=== PATIENT | female | born 1975 ===

== ENCOUNTER → 2017-01-14 | Day surgery (SDC) | payer OTHER ==
[~2017-01-14] VITALS: Ht 156.2 cm; Wt 89.9 kg
[2017-01-14 09:24] LABS: HCT 36.3 % (37.0-47.0); HGB 12.6 g/dl (12.5-16.0); MCH 30.7 pg (25.0-31.0); MCHC 34.7 g/dL (32.0-36.0); MCV 88.3 fL (78.0-100.0); MPV 9.6 fL (6.0-9.5); RBC 4.11 M/uL (4.20-5.40); RDW 14.8 % (11.5-14.0); WBC 5.3 K/uL (4.0-10.5)
[2017-01-14 09:27] LABS: INR 0.95 (0.9-1.2); PROTHROMBIN TIME 12.3 SECONDS (11.7-14.0); PTT 26.3 SECONDS (23.2-31.4)
[2017-01-14 09:33] LABS: ALBUMIN 3.9 g/dL (3.5-5.0); BILIRUBIN - TOTAL 0.4 mg/dL (0.1-1.0); CREATININE 0.7 mg/dL (0.5-1.0); GLOBULIN (CALCULATION) 2.8 g/dL (2.2-4.2); POTASSIUM 4.1 mmol/L (3.5-5.1); TOTAL PROTEIN 6.7 g/dL (6.4-8.3)
[2017-01-14 10:32] LABS: TSH (THYROID STIM HORMONE) 2.42 uIU/mL (0.270-4.200); VITAMIN D (25-OH) 33.47 ng/mL (20.0-)
[2017-01-14 10:34] LABS: FOLIC ACID (SERUM) > 20.0 ng/mL (4.4-31.0)
== END | disposition home or self-care (01) ==
LOC: FAS 08:30
PROVIDERS: Surgery
DX: K44.9 Diaphragmatic hernia without obstruction or gangrene (principal); K21.9 Gastro-esophageal reflux disease without esophagitis; E66.01 Morbid (severe) obesity due to excess calories; Z68.35 Body mass index [BMI] 35.0-35.9, adult; I10 Essential (primary) hypertension; E11.9 Type 2 diabetes mellitus without complications; Z79.84 Long term (current) use of oral hypoglycemic drugs; F41.9 Anxiety disorder, unspecified; F32.9 Major depressive disorder, single episode, unspecified; G47.30 Sleep apnea, unspecified
CPT/HCPCS: 36415; 80053; 80061; 82306; 82607; 82728; 82746; 83036; 83540; 83550; 84425; 84443; 84703; 85610; 85730; 88305; J2704